=== PATIENT | female | born 2000 | race Caucasian/White ===

== ENCOUNTER 2019-10-26 01:27 | Emergency (ER) | payer SELFPAY ==
[~2019-10-26] VITALS: Ht 157.5 cm; Wt 59.1 kg
[2019-10-26 01:30] VITALS: TEMP 97.8
[2019-10-26] MEDS ORDERED: CEPHALEXIN500 M1 PO (01:56)
[2019-10-26 02:11] VITALS: BP 122/70; PULSE 68
== END 2019-10-26 02:20 | disposition home or self-care (01) ==
LOC: COL.ER 01:27
DX: S10.96XA Insect bite of unspecified part of neck, initial encounter (principal); S30.861A Insect bite (nonvenomous) of abdominal wall, initial encounter; W57.XXXA Bitten or stung by nonvenomous insect and other nonvenomous arthropods, initial encounter